=== PATIENT | male | born 1985 | race Caucasian/White ===

== ENCOUNTER 2016-08-26 21:25 | Emergency (ER) | payer OTHER ==
[~2016-08-26] VITALS: Ht 175.3 cm; Wt 90.7 kg
[2016-08-26] MEDS ORDERED: PARO20TA3 PO (21:37)
[2016-08-26] MEDS ORDERED: OLAN15TA PO (21:37)
[2016-08-26] MEDS ORDERED: PRAZ5CAP PO (21:37)
[2016-08-26] MEDS ORDERED: VITA500046 PO (21:37)
[2016-08-26 21:57] LABS: BASO % 0.5 % (0.0-1.0); EOS # 0.2 K/mm3 (0.0-0.50); EOS % 2.3 % (0.0-3.0); LARGE UNSTAINED CELL # 0.2 K/mm3 (0.0-0.4); LYMPH # 3.1 K/mm3 (1.5-4.5); LYMPH % 37.7 % (24.0-44.0); MEAN CORPUSCULAR HEMOGLOBIN 32.2 pg (27.0-33.0); MEAN CORPUSCULAR VOLUME 91.9 fl (80.0-96.0); MONO # 0.5 K/mm3 (0.0-0.8); MONO % 6.7 % (0.0-5.0); NEUTROPHILS # 3.9 K/mm3 (1.8-7.7); NEUTROPHILS % 50.8 % (36.0-66.0); PLATELET COUNT, AUTOMATED 226 k/mm3 (150-450); WHITE BLOOD COUNT 7.8 K/mm3 (4.0-10.0)
[2016-08-26] MEDS ORDERED: MORPHINE 4 MG/ML 1ML SYRINGE IV PRN (22:00)
[2016-08-26] MEDS ORDERED: NS 1,000 ML IV ONE (22:00)
[2016-08-26] MEDS ORDERED: ONDANSETRON 4MG/2ML VIAL (J2405) IV ONE (22:00)
[2016-08-26 22:41] LABS: ALBUMIN 3.6 GM/DL (3.2-5.2); ALKALINE PHOSPHATASE 103 U/L (45-117); ALT/SGPT 48 U/L (12-78); ANION GAP 8 MEQ/L (8-16); AST/SGOT 25 U/L (15-37); BILIRUBIN,DIRECT < 0.1 MG/DL (0.0-0.2); BILIRUBIN,TOTAL 0.2 MG/DL (0.2-1.0); BLOOD UREA NITROGEN 17 MG/DL (7-18); CALCIUM LEVEL 8.8 MG/DL (8.5-10.1); CARBON DIOXIDE LEVEL 25 MEQ/L (21-32); CHLORIDE LEVEL 107 MEQ/L (98-107); CREATININE FOR GFR 1.16 MG/DL (0.70-1.30); GLOMERULAR FILTRATION RATE > 60.0 (>60); GLUCOSE, FASTING 96 MG/DL (70-105); POTASSIUM SERUM 3.8 MEQ/L (3.5-5.1); SODIUM LEVEL 140 MEQ/L (136-145); TOTAL PROTEIN 7.2 GM/DL (6.4-8.2)
[2016-08-26] MEDS ORDERED: ISOVUE-370 76% 100ML VIAL (Q9967) As Ordered ONE (22:59)
--- NOTE | 2016-08-26 23:20 | REPUSA ---
CT of the abdomen and pelvis with contrast Clinical statement: Pain. Technique: Multiple axial CT images were obtained from the base of the lungs through the floor of the pelvis utilizing 5 mm axial slices after administration of nonionic intravenous contrast. Coronal an d sagittal reconstructions were also obtained. No comparison is available. Findings: Chest: The visualized lung bases are clear. Abdomen: The liver, spleen, pancreas, kidneys, gallbladder, and adrenal glands are unremarkable. The aorta is within normal limits. There is no evidence of abdominal lymphadenopathy or ascites. Pelvis: The bowel is unremarkable, with no obstructive or inflammatory changes.. The appendix is norm al. The urinary bladder is within normal limits. The other pelvic structures appear grossly intact. T here is no evidence of pelvic lymphadenopathy or ascites. Bones: There are no suspicious osseous abnormalities seen. Impression: Unremarkable CT examination of the abdomen and pelvis.
[2016-08-27] MEDS ORDERED: ZOFR4TAB3 PO (01:42)
[2016-08-27 01:57] VITALS: BP 104/64
== END 2016-08-27 01:59 | disposition home or self-care (01) ==
LOC: EDBD 21:25 → M ED 23:01
DX: R10.9 Unspecified abdominal pain (principal); F17.200 Nicotine dependence, unspecified, uncomplicated; Z79.899 Other long term (current) drug therapy
CPT/HCPCS: 74177; 80048; 80076; 83690; 85025; 87040; 93041; 96361; 96374; 96375; 99284; J2405; Q9967

== ENCOUNTER 2018-04-08 09:28 | Day surgery (SDC) | payer OTHER ==
[2018-04-08] MEDS ORDERED: LIDOCAINE 2% INJ 100 MG/5 ML SDV (FOR ANES.) As Ordered (09:42)
[2018-04-08] MEDS ORDERED: PROPOFOL 200 MG/20 ML VIAL As Ordered (09:42)
[2018-04-08] MEDS: NS 1,000 ML IV (09:45)
== END 2018-04-08 12:13 | disposition home or self-care (01) ==
LOC: M OPP 09:28
DX: R12 Heartburn (principal); K22.8 Other specified diseases of esophagus; K44.9 Diaphragmatic hernia without obstruction or gangrene
CPT/HCPCS: 43239

== ENCOUNTER 2020-06-05 16:12 | Emergency (ER) | payer OTHER ==
[~2020-06-05] VITALS: Ht 176.5 cm; Wt 82.1 kg
[2020-06-05 16:12] VITALS: BP 122/81
[~2020-06-05 16:12] MED LIST: FLUO20CA20 PO; OLAN15TA PO; OMEP20TA9 PO; PARO20TA3 PO; PRAZ5CAP PO; RANI1SYP PO; ROSU40TA4 PO; TRAM50TA2 PO; VITA500046 PO; ZOFR4TAB14 PO; [UNRECOGNIZED DRUG - OTHER] PO
--- OUTSIDE RECORDS SUMMARY | 2020-06-05 16:18 | CCD ---
Author Author [facility] Organization [facility] Address Unknown Phone Unavailable Support Name Relationship Address Phone RE Next Of Kin Unknown Unavailable BALJINDER PINA Next Of Kin [address] [address] [employer] [place] [address] Jas HOANG Next Of Kin [address] [place] [id number] Re-disclosure Warning The records that you are about to access may contain information from federally-assisted alcohol or drug abuse programs. If such information is present, then the following federally mandated warning applies: This information has been disclosed to you from records protected by federal confidentiality rules (42 CFR part 2). The federal rules prohibit you from making any further disclosure of this information unless further disclosure is expressly permitted by the written consent of the person to whom it pertains or as otherwise permitted by 42 CFR part 2. A general authorization for the release of medical or other information is NOT sufficient for this purpose. The Federal rules restrict any use of the information to criminally investigate or prosecute any alcohol or drug abuse patient.The records that you are about to access may contain highly sensitive health information, the redisclosure of which is protected by Article 27-F of the [facility] Public Health law. If you continue you may have access to information: Regarding HIV / AIDS; Provided by facilities licensed or operated by the [facility] Office of Mental Health; or Provided by the [facility] Office for People With Developmental Disabilities. If such information is present, then the following [facility] mandated warning applies: This information has been disclosed to you from confidential records which are protected by state law. State law prohibits you from making any further disclosure of this information without the specific written consent of the person to whom it pertains, or as otherwise permitted by law. Any unauthorized further disclosure in violation of state law may result in a fine or alf sentence or both. A general authorization for the release of medical or other information is NOT sufficient authorization for further disc losure. Family History Family Member Name Family Member Gender Family Member Status Date o f Status Description Data Source(s) Unknown Unknown Problem [facility] ([facility]) Insurance Providers Payer name Policy type / Coverage type Policy ID Covered green party ID Covered green party's relationship to holloway Policy Holloway Plan Information 'S ADMINISTRATION [id number] SP [id number] [facility] O [id number] S [id number] [employer] O [id number] S [id number] [employer] Commercial [id number] Self [id number] SELF [id number]
[2020-06-05] MEDS ORDERED: LATU80TA PO (16:29)
--- OUTSIDE RECORDS SUMMARY | 2020-06-05 19:00 | CCD ---
Author Author [facility] Organization [facility] Address Unknown Phone Unavailable Support Name Relationship Address Phone RE Next Of Kin Unknown Unavailable BALJINDER PINA Next Of Kin [address] [address] [place] [place] [address] Jas HOANG Next Of Kin [address] [place] [phone] Re-disclosure Warning The records that you are [...] is protected by Article 27-F of the [facility] Public Health law. If you continue you may have access to information: Regarding HIV / AIDS; Provided by facilities licensed or operated by the [facility] Office of Mental Health; or Provided by the [facility] Office for People With Developmental Disabilities. If such information is present, then the following [facility] mandated warning applies: This information has [...] law may result in a fine or penitentiary sentence or both. A general authorization for the release of medical or other information is NOT sufficient authorization for further disc losure. Family History Family Member Name Family Member Gender Family Member Status Date o f Status Description Data Source(s) Unknown Unknown Problem [facility] ([facility]) Insurance Providers Payer name Policy type / Coverage type Policy ID Covered libertarian ID Covered libertarian's relationship to holloway Policy Holloway Plan Information 'S ADMINISTRATION [id number] SP [id number] [facility] O [id number] S [id number] [employer] O [id number] S [id number] [facility] Commercial [id number] Self [id number] SELF [id number]
== END 2020-06-05 18:54 | disposition left against medical advice (07) ==
LOC: M ED 16:12
DX: Z53.21 Procedure and treatment not carried out due to patient leaving prior to being seen by health care provider (principal)

== ENCOUNTER 2020-10-21 16:46 | Emergency (ER) | payer OTHER ==
[~2020-10-21] VITALS: Ht 175.3 cm; Wt 82.1 kg
[~2020-10-21 16:46] MED LIST changes: +LATU80TA PO; +OMEP20TA2 PO; -OMEP20TA9 PO
[2020-10-21] MEDS ORDERED: diphenhydrAMINE 50MG/ML VIAL (J1200) IM ONE (17:00)
[2020-10-21] MEDS ORDERED: LORazepam 2 MG/ML VIAL IM ONE (17:00)
[2020-10-21] MEDS ORDERED: HALOPERIDOL 5MG/ML VIAL (J1630 PER 1) IM ONE (17:00)
[2020-10-21 17:44] LABS: HEMATOCRIT 42.2 % (42.0-52.0); HEMOGLOBIN 14.4 g/dl (13.5-17.5); MEAN CORPUSCULAR HEMOGLOBIN 31.9 pg (27.0-33.0); MEAN CORPUSCULAR HGB CONC 34.1 g/dl (32.0-36.5); MEAN CORPUSCULAR VOLUME 93.4 fl (80.0-96.0); PLATELET COUNT, AUTOMATED 227 10^3/uL (150-450); RED BLOOD COUNT 4.52 10^6/uL (4.30-6.10); WHITE BLOOD COUNT 9.7 10^3/uL (4.0-10.0)
[2020-10-21 18:19] LABS: ACETAMINOPHEN LEVEL < 2.0 UG/ML (10.0-30.0); ALBUMIN 3.7 GM/DL (3.2-5.2); ALT/SGPT 51 U/L (12-78); BILIRUBIN,DIRECT 0.1 MG/DL (0.0-0.2); BILIRUBIN,TOTAL 0.3 MG/DL (0.2-1.0); BLOOD UREA NITROGEN 15 MG/DL (7-18); CALCIUM LEVEL 8.8 MG/DL (8.5-10.1); CARBON DIOXIDE LEVEL 27 MEQ/L (21-32); CHLORIDE LEVEL 109 MEQ/L (98-107); CPK CREATINE PHOSPHOKINASE 123 U/L (39-308); CREATININE FOR GFR 1.24 MG/DL (0.70-1.30); ETHYL ALCOHOL (ETHANOL) < 0.003 % (0.000-0.010); GLOMERULAR FILTRATION RATE > 60.0 (>60); GLUCOSE, FASTING 87 MG/DL (70-100); SALICYLATE LEVEL 2.9 MG/DL (5.0-30.0); SODIUM LEVEL 141 MEQ/L (136-145)
[2020-10-21] MEDS ORDERED: LIDOCAINE 2% 5ML JELLY UROJET TOP ONE (18:20)
[2020-10-21] MEDS ORDERED: LORazepam 2 MG/ML VIAL IM STA (18:44)
[2020-10-21] MEDS ORDERED: LURASIDONE 20 MG TAB (LATUDA) PO ONE (21:15)
[2020-10-21] MEDS ORDERED: OLANZapine 5 MG TAB PO ONE (21:15)
[2020-10-21 22:13] LABS: AMPHETAMINES LEVEL URINE NEGATIVE (NEGATIVE); BARBITURATES URINE NEGATIVE (NEGATIVE); BENZODIAZEPINES URINE NEGATIVE (NEGATIVE); CANNABINOIDS URINE POSITIVE (NEGATIVE); COCAINE METABOLITE URINE NEGATIVE (NEGATIVE); METHADONE URINE NEGATIVE (NEGATIVE); OPIATES URINE NEGATIVE (NEGATIVE); PHENCYCLIDINE URINE NEGATIVE (NEGATIVE)
[2020-10-22] MEDS ORDERED: NEOSPORIN TOP OINT 15GM TOP ONE (00:25)
[2020-10-22] MEDS ORDERED: FLUoxetine 10 MG CAP PO ONE (08:35)
[2020-10-22] MEDS ORDERED: OMEPRAZOLE 20 MG CAP PO ONE (08:35)
[2020-10-22] MEDS ORDERED: FLUoxetine 20 MG CAP PO ONE (08:35)
[2020-10-22] MEDS ORDERED: ROSUVASTATIN 10 MG TAB (CRESTOR) PO SCH (09:00)
[2020-10-22] MEDS ORDERED: ROSU40TA4 PO (09:17)
[2020-10-22] MEDS ORDERED: D31000TA2 PO (09:17)
[2020-10-22] MEDS ORDERED: OLAN2.5T25 PO (09:17)
[2020-10-22] MEDS ORDERED: OMEP-218 PO (09:17)
[2020-10-22] MEDS ORDERED: NICO-260 MT (09:17)
[2020-10-22] MEDS ORDERED: FLUO40CA PO (09:17)
[2020-10-22] MEDS ORDERED: CLON-412 PO (09:17)
[2020-10-22] MEDS ORDERED: HYDR-3363 PO (09:17)
[2020-10-22] MEDS ORDERED: FAMO40TA3 PO (09:17)
[2020-10-22] MEDS ORDERED: COMMENTS (09:28)
[2020-10-22 11:39] LABS: RSV AMPLIFICATION NEGATIVE (NEGATIVE)
--- NOTE | 2020-10-22 14:34 | ECGEPIP ---
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
[2020-10-22 18:39] VITALS: BP 123/73
== END 2020-10-22 18:43 ==
LOC: M ED 16:46
DX: F29 Unspecified psychosis not due to a substance or known physiological condition (principal); Z79.899 Other long term (current) drug therapy; Z86.59 Personal history of other mental and behavioral disorders
CPT/HCPCS: 80048; 80076; 80143; 80307; 82077; 82550; 84443; 85027; 87631; 93005; 96372; 99285; J1200; J1630; J2060